=== PATIENT | female | born 1950 | race Two or more races ===

== ENCOUNTER 2022-12-03 09:12 | Outpatient (OUT) | payer OTHER, SELFPAY ==
--- NOTE | 2022-12-03 10:51 | CA_ITS ---
[facility] Test Date: 2022-12-17 Pat Name: MONICA DE ANDA Department: Room: - Gender: Female [employer]: : [id number] Requested By: JAKE MCLAUGHLIN Order Number: [id number] Reading MD: ROBERTO HOLBROOK Interpretive Statements Predominant rhythm is sinus with average rate of 77 bpm Tachycardia - max rate of 127 bpm - 1 episodes of PSVT w/ duration of 3 beats - longest episode of 13min 49sec with rates between 113-127 bpm Bradycardia - min rate of 44 bpm - longest episode of 39min 19sec with rates between 48-57 bpm Ventricular ectopy - 440 total (<1%) - 438 PVC - 2 couplets Patient triggered events: 2 - no associated symptoms - associated with NSR Impression: Predominant rhythm is sinus with average rate of 77 bpm Fastest rate is 127 bpm and slowest rate is 44 bpm 438 PVC and 2 couplets No atrial fibrillation No blocks or pauses Electronically Signed On 12-18-2022 7:12:06 EDT by ROBERTO HOLBROOK
== END 2022-12-03 09:13 | disposition home or self-care (01) ==
LOC: CARD 09:18
PROVIDERS: PCP Family Medicine; Visit Provider Family Medicine
DX: R00.2 Palpitations (principal)
CPT/HCPCS: 93246